=== PATIENT | male | born 1950 | race Caucasian/White ===

== ENCOUNTER 2017-05-26 10:25 | Emergency (ER) | payer OTHER ==
[2017-05-26 11:39] LABS: BASOPHIL % 0.4 % (0-2); PLATELET COUNT 228 x10^3mcL (130-400); RED CELL DISTRIBUTION WIDTH 14.3 % (11.5-14.5)
[2017-05-26 11:56] LABS: CALCIUM 8.6 mg/dL (8.5-10.1); CARBON DIOXIDE 29.4 mmol/L (21-32); CHLORIDE SERUM 107 mmol/L (98-107); CREATININE SERUM 0.9 mg/dL (0.7-1.3); GFR1 > 60 mL/min; GLUCOSE SERUM 126 mg/dL (74-106); POTASSIUM SERUM 3.9 mmol/L (3.5-5.1); SODIUM SERUM 141 mmol/L (136-145)
[2017-05-26 12:01] LABS: ALBUMIN 3.5 g/dL (3.4-5.0); ALKALINE PHOSPHATASE 67 U/L (46-116); ALT/SGPT 31 U/L (16-63); AST/SGOT 15 U/L (15-37); HDL CHOLESTEROL 48 mg/dL (40-60); TOTAL PROTEIN, SERUM 7.2 g/dL (6.4-8.2); TRIGLYCERIDES 93 mg/dL (<150)
[2017-05-26 12:03] LABS: FREE T4 0.87 ng/dL (0.76-1.46); FREE THYROXINE INDEX 2.3 ug/dL (1.4-4.5); T4(THYROXINE) 6.7 ug/dL (4.7-13.3)
[2017-05-26 12:06] LABS: T3 TOTAL 0.86 ng/mL
[2017-05-26 12:07] LABS: CHOLESTEROL 124 mg/dL (<200); CHOLESTEROL/HDL RATIO 2.6
[2017-05-26 13:27] VITALS: BP 140/79
== END 2017-05-26 13:27 | disposition home or self-care (01) ==
LOC: ED 10:25
PROVIDERS: Specialist
DX: I82.812 Embolism and thrombosis of superficial veins of left lower extremity (principal)
CPT/HCPCS: 36415; 83880; 84439; Q0092